=== PATIENT | male | born 1970 | race Caucasian/White ===

== ENCOUNTER → 2019-04-30 | Outpatient (CLI) | payer BC ==
--- NOTE | 2019-04-30 15:28 | EXE ---
[facility] [place] [address] STRESS ECHOCARDIOGRAM Name: KHLOE OKEEFE Room #: REG [facility] Page#: [id number] Admission: 04/30/19 Attend Phys: Alfonso Espino MD Discharge: Date of : 70 Report #: [id number] THIS REPORT FOR: //name// APPROVED REPORT Study performed: 04/30/2019 13:50:22 Exam: Stress Echocardiogram Indication: Hypertension Patient Location: Out-Patient Stress Nurse: Eryn SWARTZ Room #: Echo lab 2 Status: routine Ht: 6 ft 0 in HR: 77 bpm BP: 138/88 mmHg Rhythm: NSR Medical History Cardiac Risk Factors: HTN Exercise History: Physically active Procedure The patient underwent an Exercise Stress Test using the Ángel Protocol. Blood pressure, heart rate, and EKG were monitored. An Echocardiogram was performed by chief ophthalmic technician in four stages in quad fashion. At peak stress, four selected images were obtained and placed side by side with resting images for comparison. Stress Test Details Stress Test: Exercise stress testing was performed using a Ángel protocol. HR Resting HR: 77 bpm Max Heart Rate (APMHR): 171 bpm Max HR Achieved: 160 bpm Target HR (85% APMHR): 145 bpm % of APMHR: 93 Recovery HR: 99 bpm HR response to stress: Normal HR response to stress BP Resting BP: 138/88 mmHg Max BP: 210/92 mmHg Recovery BP: 162/92 mmHg BP response to stress: Normal blood pressure response to stress. [facility] [address] [place] [address] STRESS ECHOCARDIOGRAM Name: KHLOE OKEEFE Room #: REG [facility].#: [id number] Admission: 04/30/19 Attend Phys: Alfonso Espino MD Discharge: Date of : 70 Report #: [id number] Resting ECG: Sinus Rhythm Stress ECG: Sinus Rhythm, nonspecific ST-T abnormalities ST Change: Non-ischemic Clinical Reason for Termination: Maximal effort Exercise duration: 10 min sec Highest Stage Achieved: Stage 4: 4.2 mph at 16% grade. Exercise capacity: 12.3 METs Overall Exercise Capacity for Age: Good Pre-Stress Echo The resting Echocardiogram showed normal left ventricular contractility with an estimated Ejection Fraction of about 55-60%. The resting echocardiogram demonstrated normal wall motion in all wall segments. Normal wall motion in all segments on baseline images. Post-Stress Echo The stress Echocardiogram showed normal left ventricular contractility with an estimated Ejection Fraction of about >70%. Compared to rest, there were no stress-induced wall motion abnormalities. Normal augmentation of wall motion in all segments on post stress images. Clinical No clinical or ECG evidence for ischemia. Conclusion Clinical Response: Non-ischemic Exercise Capacity: Above average Stress ECG Response: Non-ischemic Stress Echo Images: Non-ischemic The left ventricle is normal in size and wall thickness in both the rest and stress images. No prior study available for comparison. Other Information Study Quality: Good <Conclusion> [facility] [address] [place] [address] STRESS ECHOCARDIOGRAM Name: RANULFO OKEEFEN Room #: REG [facility].#: [id number] Admission: 04/30/19 Attend Phys: Alfonso Espino MD Discharge: Date of : 70 Report #: [id number] The left ventricle is normal in size and wall thickness in both the rest and stress images. <ELECTRONICALLY SIGNED> By: Alfonso Espino MD 04/30/19 1528 1528 1528 Alfonso Espino MD /INF
--- NOTE | 2019-04-30 16:11 | 2DMMODE ---
[facility] [place] [place] [address] 2 D/M-MODE ECHOCARDIOGRAM Name: KHLOE OKEEFE [id number] Admission: 04/30/19 Attend Phys: Alfonso Espino MD Discharge: Date of : 70 Report #: [id number] THIS REPORT FOR: //name// ADDENDUM APPROVED REPORT Study performed: 04/30/2019 13:11:33 EXAM: Comprehensive 2D, Doppler, and color-flow Echocardiogram Patient Location: Out-Patient Room #: Echo lab 2 Status: routine BSA: 2.29 HR: 65 bpm BP: 138/ mmHg Rhythm: NSR Other Information Study Quality: Good Indications Hypertension/HDD 2D Dimensions RVDd: 38.40 mm IVSd: 13.37 (7-11mm) LVOT Diam: 23.43 (18-24mm) LVDd: 49.80 mm PWd: 13.29 (7-11mm) Ascending Ao: 28.00 (22-36mm) LVDs: 37.53 (25-40mm) Aortic Root: 32.73 mm IVC: 16.00 mm Volumes Left Atrial Volume (Systole) Single Plane 4CH: 83.55 mL Single Plane 2CH: 54.83 mL LA ESV Index: 32.00 mL/m2 Aortic Valve AoV Peak Alan.: 1.83 m/s AO Peak Gr.: 13.45 mmHg LVOT Max P.08 mmHg LVOT Max V: 1.23 m/s MYRON Vmax: 2.90 cm2 Mitral Valve E/A Ratio: 1.2 MV Decel. Time: 263.28 ms MV E Max Alan.: 0.88 m/s [facility] [address] [place] [address] 2 D/M-MODE ECHOCARDIOGRAM Name: KHLOE OKEEFE Room #: REG [facility]#: [id number] Admission: 04/30/19 Attend Phys: Alfonso Espino MD Discharge: Date of : 70 Report #: [id number] MV A Alan.: 0.73 m/s MV PHT: 76.35 ms IVRT: 124.57 ms Pulmonary Valve PV Peak Alan.: 0.90 m/s PV Peak Gr.: 3.36 mmHg Pulmonary Vein P Vein S: 0.73 m/s P Vein A: 0.27 m/s P Vein D: 0.38 m/s P Vein A Dur.: 87.7 msec P Vein S/D Ratio: 1.92 Left Ventricle The left ventricle is normal size. There is normal LV segmental wall motion. There is normal left ventricular wall thickness. The left ventricular systolic function is normal. The left ventricular ejection fraction is within the normal range. LVEF is 60-65%. The left ventricular diastolic function is normal. Right Ventricle The right ventricle is normal size. The right ventricular systolic function is normal. Atria The left atrium size is normal. The right atrium size is normal. Aortic Valve The aortic valve is normal in structure. No aortic regurgitation is present. There is no aortic valvular stenosis. Mitral Valve The mitral valve is normal in structure. Trace mitral regurgitation. No evidence of mitral valve stenosis. Tricuspid Valve The tricuspid valve is normal in structure. There is no tricuspid valve regurgitation noted. Pulmonic Valve The pulmonary valve is normal in structure. There is no pulmonic valvular regurgitation. Great Vessels The aortic root is normal in size. IVC is normal in size and collapses >50% with inspiration. [facility] [address] [place] [address] 2 D/M-MODE ECHOCARDIOGRAM Name: KHLOE OKEEFE Room #: REG [facility].#: [id number] Admission: 04/30/19 Attend Phys: Alfonso Espino MD Discharge: Date of : 70 Report #: [id number] Pericardium There is no pericardial effusion. <Conclusion> The left ventricle is normal size. The left ventricular systolic function is normal. The right ventricle is normal size. The left atrium size is normal. The aortic valve is normal in structure. Trace mitral regurgitation. There is no tricuspid valve regurgitation noted. <ELECTRONICALLY SIGNED> By: Alfonso Espino MD 04/30/19 161 10 1611 Alfonso Espino MD /KOURTNEY
== END ==
LOC: CV 12:57
DX: I10 Essential (primary) hypertension (principal); R42 Dizziness and giddiness